=== PATIENT | male | born 1995 | race Caucasian/White ===

== ENCOUNTER → 2017-01-11 | Outpatient (CLI) | payer OTHER ==
[~2017-01-11] MED LIST: ISOVUE-370 76% 100ML VIAL (Q9967) As Ordered ONE
--- NOTE | 2017-01-11 09:47 | REP ---
CT NECK WITH CONTRAST: HISTORY: Tympanic membrane perforation. CONTRAST: Isovue 370, 75 mL. The naso-, jerald- and hypopharynx, larynx and subglottic trachea are normal in appearance. The salivary and thyroid glands are normal. Small lymph nodes less than 1 cm in size are present in the internal jugular chains, posterior triangles, submandibular and submental areas. The lung apices are clear. The visualized sinuses are clear. IMPRESSION: There is no neck mass or adenopathy. Signed by Kan Serna MD 01/11/2017 09:48 A
--- NOTE | 2017-01-11 10:02 | REP ---
CT IACS WITHOUT CONTRAST: HISTORY: Left tympanic membrane perforation. The internal auditory canals, cochlea, vestibules and semicircular canals are normal in appearance. The ossicles are normal in configuration and position. The scutum and tegmen are intact. The middle ear cavities and mastoid air cells are clear. The nasopharynx is normal in appearance. The visualized sinuses are clear. IMPRESSION: Normal CT IACs. Signed by Kan Serna MD 01/11/2017 10:20 A
== END ==
LOC: M RAD 08:08
PROVIDERS: ATTEND Physician Assistant Medical
DX: H72.2X2 Other marginal perforations of tympanic membrane, left ear (principal); R22.1 Localized swelling, mass and lump, neck
CPT/HCPCS: 70481; 70491; Q9967

== ENCOUNTER 2017-03-16 10:31 | Day surgery (SDC) | payer OTHER ==
[~2017-03-16] VITALS: Ht 180.3 cm; Wt 79.4 kg
[2017-03-16] MEDS ORDERED: LR 1,000 ML IV ONE (11:00)
[2017-03-16] MEDS ORDERED: PHENYLEPHRINE 0.5% NASAL SPRAY 15 ML As Ordered ONE (13:02)
[2017-03-16] MEDS ORDERED: CIPRODEX OTIC SUSP 7.5ML As Ordered ONE (13:02)
[2017-03-16] MEDS ORDERED: MIDAZOLAM INJ 2 MG/2 ML VIAL (J2250) As Ordered ONE (13:34)
[2017-03-16] MEDS ORDERED: fentaNYL 100 MCG/2 ML INJECTION (J3010) As Ordered ONE (13:35)
[2017-03-16] MEDS ORDERED: dexameTHASONE 4 MG/ML 1ML VIAL (J1100) As Ordered ONE (13:39)
[2017-03-16] MEDS ORDERED: ONDANSETRON 4MG/2ML VIAL (J2405) As Ordered ONE (13:39)
[2017-03-16] MEDS ORDERED: PROPOFOL 200 MG/20 ML VIAL As Ordered ONE (14:06)
[2017-03-16] MEDS ORDERED: fentaNYL 100 MCG/2 ML INJECTION (J3010) IV PRN (14:15)
[2017-03-16] MEDS ORDERED: PERCOCET 5MG/325MG TAB PO PRN (14:15)
[2017-03-16] MEDS ORDERED: ONDANSETRON 4MG/2ML VIAL (J2405) IV PRN (14:15)
[2017-03-16] MEDS ORDERED: LR 1,000 ML IV SCH (14:15)
[2017-03-16 15:15] VITALS: BP 102/66
--- NOTE | 2017-03-18 09:37 | RO ---
DATE OF PROCEDURE: 03/16/2017 PREOPERATIVE DIAGNOSIS: Left conductive hearing and perforation of left tympanic membrane. POSTOPERATIVE DIAGNOSIS: same, eustachian tube dysfunction. PROCEDURE: left gelfoam myringoplasty. SURGEON: Dr. Moses Pacheco [employer] COORDINATOR: ANESTHESIA: General. CLINICAL PREAMBLE: This 21-year-old man presented to the office with history of hearing loss and tympanic membrane perforation of the left ear. CT of temporal bone was unremarkable for cholesteatoma. Audiogram confirmed presence of conductive hearing loss of the left ear. Management options including left Gelfoam myringoplasty had been discussed. The patient understood and consented to the procedure. OR NARRATION: The patient was identified in preholding and had the left ear marked. He was brought to the operating room in stable condition. In the supine position on the operating room table, the patient received general anesthesia followed by laryngeal mask intubation without incident. ventilation. The patient was prepped and draped in the usual fashion for the procedure. The patient was turned to the right side to expose the left ear. The ear speculum was inserted and cerumen was debrided. The tympanic membrane perforation was noted over the anterior inferior quadrant of the tympanic membrane. There was mild retraction of the tympanic membrane in the posterior inferior quadrant. The edge of the perforation was freshened using the curved picks. Gelfoam pieces soaked in Ciprodex were then placed into the left middle ear cavity. A piece of Gelfoam was placed over the tympanic membrane perforation site. Additional pieces of Gelfoam were then packed in the left ear canal. Ciprodex drops were instilled and a cotton ball was used to occlude the ear canal. The At the end of the end of the procedure, sponge and needle counts were correct. No complications were encountered. Estimated blood loss was less than 1 mL. General anesthesia was reversed and patient was extubated and brought to the recovery room in stable condition. ANGELIA
== END 2017-03-16 15:20 | disposition home or self-care (01) ==
LOC: M SDC 10:31
PROVIDERS: ATTEND Otolaryngology
DX: H72.2X2 Other marginal perforations of tympanic membrane, left ear (principal); H69.82 Other specified disorders of Eustachian tube, left ear; Z87.891 Personal history of nicotine dependence
CPT/HCPCS: 69610; J1100; J2250; J2405; J3010

== ENCOUNTER 2017-11-28 00:04 | Emergency (ER) | payer OTHER ==
[2017-11-28 00:52] LABS: HEMATOCRIT 41.8 % (42.0-52.0); HEMOGLOBIN 14.2 g/dl (13.5-17.5); MEAN CORPUSCULAR HEMOGLOBIN 28.9 pg (27.0-33.0); PLATELET COUNT, AUTOMATED 253 10^3/uL (150-450); RED BLOOD COUNT 4.92 10^6/uL (4.30-6.10); RED CELL DISTRIBUTION WIDTH 12.5 % (11.5-14.5); WHITE BLOOD COUNT 9.2 10^3/uL (4.0-10.0)
[2017-11-28 01:19] LABS: ACETAMINOPHEN LEVEL < 2.0 UG/ML (10.0-30.0); ALBUMIN 3.9 GM/DL (3.2-5.2); ALBUMIN/GLOBULIN RATIO 1.22 (1.00-1.93); ALKALINE PHOSPHATASE 48 U/L (45-117); ALT/SGPT 97 U/L (12-78); ANION GAP 8 MEQ/L (8-16); AST/SGOT 60 U/L (7-37); BILIRUBIN,DIRECT 0.1 MG/DL (0.0-0.2); BILIRUBIN,TOTAL 0.3 MG/DL (0.2-1.0); BLOOD UREA NITROGEN 19 MG/DL (7-18); CALCIUM LEVEL 8.5 MG/DL (8.5-10.1); CARBON DIOXIDE LEVEL 26 MEQ/L (21-32); CHLORIDE LEVEL 107 MEQ/L (98-107); CREATININE FOR GFR 1.06 MG/DL (0.70-1.30); ETHYL ALCOHOL (ETHANOL) 0.138 % (0.000-0.010); GLOMERULAR FILTRATION RATE > 60.0 (>60); GLUCOSE, FASTING 105 MG/DL (70-100); POTASSIUM SERUM 3.7 MEQ/L (3.5-5.1); SALICYLATE LEVEL < 1.7 MG/DL (5.0-30.0); SODIUM LEVEL 141 MEQ/L (136-145); TOTAL PROTEIN 7.1 GM/DL (6.4-8.2)
[2017-11-28] MEDS: AMPICILLIN SOD/SULBACTAM SOD 3 GM in D5W MINI-BAG PLUS 100 ML IV (01:33)
[2017-11-28] MEDS ORDERED: LIDOCAINE 1% MDV 20ML VIAL As Ordered (03:00)
[2017-11-28] MEDS: LIDOCAINE 1% SDV INJ 30 ML VIAL SC (03:37)
[2017-11-28 03:57] LABS: AMPHETAMINES LEVEL URINE NEGATIVE (NEGATIVE); BARBITURATES URINE NEGATIVE (NEGATIVE); BENZODIAZEPINES URINE NEGATIVE (NEGATIVE); CANNABINOIDS URINE NEGATIVE (NEGATIVE); COCAINE METABOLITE URINE NEGATIVE (NEGATIVE); METHADONE URINE NEGATIVE (NEGATIVE); OPIATES URINE NEGATIVE (NEGATIVE); PHENCYCLIDINE URINE NEGATIVE (NEGATIVE)
== END 2017-11-28 04:33 | disposition home or self-care (01) ==
LOC: M ED 00:04
DX: S61.411A Laceration without foreign body of right hand, initial encounter (principal); S41.012A Laceration without foreign body of left shoulder, initial encounter; Y04.8XXA Assault by other bodily force, initial encounter; Y92.89 Other specified places as the place of occurrence of the external cause; F10.229 Alcohol dependence with intoxication, unspecified; Y90.0 Blood alcohol level of less than 20 mg/100 ml
CPT/HCPCS: 70450

== ENCOUNTER 2018-02-24 21:03 | Inpatient (IN) | payer OTHER ==
[2018-02-24] MEDS: NS 1,000 ML IV (21:45)
[2018-02-24 21:59] LABS: BASO % 0.2 % (0.0-1.0); HEMOGLOBIN 15.2 g/dl (13.5-17.5); IMMATURE GRANULOCYTE % 0.3 % (0-3.0); LYMPH # 0.7 10^3/uL (1.5-6.5); LYMPH % 5.8 % (24.0-44.0); MEAN CORPUSCULAR HEMOGLOBIN 29.7 pg (27.0-33.0); MEAN CORPUSCULAR HGB CONC 34.5 g/dl (32.0-36.5); MEAN CORPUSCULAR VOLUME 85.9 fl (80.0-96.0); MONO # 0.4 10^3/uL (0.0-0.8); MONO % 3.3 % (0.0-5.0); NEUTROPHILS # 10.4 10^3/uL (1.8-7.7); NEUTROPHILS % 90.4 % (36.0-66.0); PLATELET COUNT, AUTOMATED 238 10^3/uL (150-450); RED BLOOD COUNT 5.12 10^6/uL (4.30-6.10); RED CELL DISTRIBUTION WIDTH 12.6 % (11.5-14.5); WHITE BLOOD COUNT 11.5 10^3/uL (4.0-10.0)
[2018-02-24 22:09] LABS: AMPHETAMINES LEVEL URINE NEGATIVE (NEGATIVE); BARBITURATES URINE NEGATIVE (NEGATIVE); BENZODIAZEPINES URINE NEGATIVE (NEGATIVE); CANNABINOIDS URINE NEGATIVE (NEGATIVE); COCAINE METABOLITE URINE NEGATIVE (NEGATIVE); METHADONE URINE NEGATIVE (NEGATIVE); OPIATES URINE NEGATIVE (NEGATIVE); PHENCYCLIDINE URINE NEGATIVE (NEGATIVE)
[2018-02-24 22:33] LABS: ALBUMIN 4.3 GM/DL (3.2-5.2); ALBUMIN/GLOBULIN RATIO 1.39 (1.00-1.93); ALKALINE PHOSPHATASE 54 U/L (45-117); ALT/SGPT 30 U/L (12-78); ANION GAP 8 MEQ/L (8-16); AST/SGOT 18 U/L (7-37); BILIRUBIN,DIRECT 0.2 MG/DL (0.0-0.2); BILIRUBIN,TOTAL 0.4 MG/DL (0.2-1.0); BLOOD UREA NITROGEN 16 MG/DL (7-18); CALCIUM LEVEL 9.2 MG/DL (8.5-10.1); CARBON DIOXIDE LEVEL 26 MEQ/L (21-32); CHLORIDE LEVEL 109 MEQ/L (98-107); CPK CREATINE PHOSPHOKINASE 233 U/L (39-308); CREATININE FOR GFR 1.12 MG/DL (0.70-1.30); ETHYL ALCOHOL (ETHANOL) < 0.003 % (0.000-0.010); GLOMERULAR FILTRATION RATE > 60.0 (>60); GLUCOSE, FASTING 110 MG/DL (70-100); POTASSIUM SERUM 4.3 MEQ/L (3.5-5.1); SALICYLATE LEVEL < 1.7 MG/DL (5.0-30.0); SODIUM LEVEL 143 MEQ/L (136-145); THYROID STIMULATING HORMONE 0.333 uIU/ML (0.358-3.740); TOTAL PROTEIN 7.4 GM/DL (6.4-8.2)
[2018-02-24 22:38] LABS: ACETAMINOPHEN LEVEL < 2.0 UG/ML (10.0-30.0)
[2018-02-25] MEDS ORDERED: MOM 30ML SUSPENSION UDC PO (04:15)
[2018-02-25] MEDS ORDERED: MAALOX 30 ML SUSP *UDC PO (04:15)
[2018-02-25] MEDS ORDERED: traZODone 50 MG TAB PO (04:15)
[2018-02-25] MEDS ORDERED: ACETAMINOPHEN TAB 650MG DOSE (2X325MG) PO (04:15)
[2018-02-26 07:26] LABS: BASO % 0.6 % (0.0-1.0); EOS # 0.1 10^3/uL (0.0-0.50); EOS % 1.3 % (0.0-3.0); HEMATOCRIT 44.6 % (42.0-52.0); HEMOGLOBIN 14.6 g/dl (13.5-17.5); IMMATURE GRANULOCYTE % 0.3 % (0-3.0); LYMPH # 3.9 10^3/uL (1.5-6.5); LYMPH % 55.1 % (24.0-44.0); MEAN CORPUSCULAR HEMOGLOBIN 29.1 pg (27.0-33.0); MEAN CORPUSCULAR HGB CONC 32.7 g/dl (32.0-36.5); MEAN CORPUSCULAR VOLUME 88.8 fl (80.0-96.0); MONO # 0.5 10^3/uL (0.0-0.8); MONO % 7.2 % (0.0-5.0); NEUTROPHILS # 2.5 10^3/uL (1.8-7.7); NEUTROPHILS % 35.5 % (36.0-66.0); PLATELET COUNT, AUTOMATED 209 10^3/uL (150-450); RED BLOOD COUNT 5.02 10^6/uL (4.30-6.10); RED CELL DISTRIBUTION WIDTH 12.8 % (11.5-14.5)
[2018-02-26 07:56] LABS: FREE THYROXINE INDEX 2.6 % (1.4-3.8); T UPTAKE 41 % (33-40); THYROXINE (T4) 6.4 UG/DL (4.5-12.0)
== END 2018-02-28 10:00 | disposition home or self-care (01) | DRG 881 ==
LOC: M ED 21:03 → M ED INP 02-25 04:09 → M PSY 02-25 04:42
DX: F34.1 Dysthymic disorder (principal); F10.14 Alcohol abuse with alcohol-induced mood disorder; R94.6 Abnormal results of thyroid function studies

== ENCOUNTER → 2018-04-12 | Outpatient (REF) | payer OTHER ==
[2018-04-12 22:15] LABS: CHLAMYDIA DNA AMPLIFICATION NEGATIVE (NEGATIVE); GC DNA AMPLIFICATION NEGATIVE (NEGATIVE)
== END ==
LOC: M SFHCLERA 16:31
DX: R30.0 Dysuria (principal)
CPT/HCPCS: 87086

== ENCOUNTER → 2018-04-19 | Outpatient (REF) | payer OTHER | LOC: M SFHCLERA 18:39 | DX: R30.0 Dysuria (principal) ==